=== PATIENT | female | born 1955 | race Caucasian/White ===

== ENCOUNTER 2021-04-13 09:26 | Emergency (ER) | payer MEDICARE, OTHER ==
[2021-04-13] MEDS ORDERED: Fentanyl 100 MCG/2 ML VIAL ONE (09:55)
== END 2021-04-13 10:46 | disposition home or self-care (01) ==
LOC: BURERS 09:26
DX: S43.004A Unspecified dislocation of right shoulder joint, initial encounter (principal); E78.5 Hyperlipidemia, unspecified; R00.0 Tachycardia, unspecified; Z79.899 Other long term (current) drug therapy; W01.0XXA Fall on same level from slipping, tripping and stumbling without subsequent striking against object, initial encounter
CPT/HCPCS: 23650; 96374; J3010